=== PATIENT | male | born 1945 | race Caucasian/White ===

== ENCOUNTER 2016-07-26 03:19 | Inpatient (IN) | payer OTHER, MEDICARE, MEDICAID ==
[2016-07-26] VITALS (38 sets, daily range): BP systolic 125–162; BP diastolic 73–114; PULSE 69–101; RESP 14–26; TEMP 98.4; Ht 185.4 cm; Wt 78.6 kg
[~2016-07-26] VITALS: Ht 185.4 cm; Wt 78.6 kg
[~2016-07-26 03:19] MED LIST: DUTA0.5C PO; FLUT16SP24 NASAL; TAMS0.4C2 PO
--- NOTE | 2016-07-26 03:26 | ERA ---
ER Documentation Chief Complaint Date/Time DATE: 07/26/16 TIME: 03:25 Chief Complaint Chest pain HPI The patient is a 70-year-old male, presenting to the ER because of intermittent left-sided chest pain for 3 days, 12/04, radiating to the left arm. He denies similar symptoms previously. He saw his physician yesterday who put him on the Holter monitor. He denies fever, chills, cough, syncope, near syncope, dyspnea , abdominal pain, vomiting, dysuria, diarrhea. He does not smoke does not drink Past medical history: Hypertension, dyslipidemia, BPH, allergic rhinitis, history of left bundle branch block Past surgical history:None ROS All systems reviewed and are negative except as per history of present illness. Medications Home Meds Reported Medications Fluticasone Propionate* (Flonase* Nasal) 16 Gm Bern.susp, 1 PUFF NASAL BID 02/15/13 Dutasteride* (Avodart*) 0.5 Mg Capsule, 1 TAB PO DAILY 02/15/13 Tamsulosin Hcl* (Tamsulosin Hcl*) 0.4 Mg Cap.er.24h, 1 TAB PO DAILY 02/15/13 Allergies Allergies: Coded Allergies: No Known Allergy (Unverified , 02/15/13) PMhx/Soc History of Surgery: No Anesthesia Reaction: No Hx Neurological Disorder: No Hx Respiratory Disorders: No Hx Cardiac Disorders: Yes (HIGH BLOOD PRESSURE X 4YS) Hx Psychiatric Problems: No Hx Miscellaneous Medical Probl: No Hx Alcohol Use: No Hx Substance Use: No Hx Tobacco Use: No Physical Exam Vitals Vital Signs Date Time Temp Pulse Resp B/P Pulse Ox O2 Delivery O2 Flow Rate FiO2 07/26/16 05:09 98 22 165/106 100 07/26/16 03:51 98.2 91 17 182/116 97 Physical Exam Const: No acute distress. Head: Atraumatic. Eyes: Normal Conjunctiva. ENT: Normal External Ears, Nose and Mouth. Neck: Full range of motion. No meningismus. Resp: Clear to auscultation bilaterally. Cardio: Regular rate and rhythm, no murmurs. Abd: Soft, non distended, normal bowel sounds, non tender. Skin: No petechiae or rashes. Back: No midline or flank tenderness. Ext: No cyanosis, or edema. Neur: Awake and alert. No focal deficit Psych: Normal Mood and Affect. Result Diagram: 07/26/16 0340 07/26/16 0340 Results 24 hrs Laboratory Tests Test 07/26/16 03:40 White Blood Count 8.210^3/ul Red Blood Count 4.9110^6/ul Hemoglobin 15.0g/dl Hematocrit 45.2% Mean Corpuscular Volume 92.1fl Mean Corpuscular Hemoglobin 30.5pg Mean Corpuscular Hemoglobin Concent 33.2g/dl Red Cell Distribution Width 13.6% Platelet Count 70264^3/UL Mean Platelet Volume 11.6fl Neutrophils % 61.5% Lymphocytes % 27.0% Monocytes % 6.6% Eosinophils % 3.9% Basophils % 0.9% Nucleated Red Blood Cells % 0.0/100WBC Neutrophils # 5.110^3/ul Lymphocytes # 2.210^3/ul Monocytes # 0.510^3/ul Eosinophils # 0.310^3/ul Basophils # 0.110^3/ul Nucleated Red Blood Cells # 0.010^3/ul Prothrombin Time 12.9Sec Prothrombin Time Ratio 1.0 INR International Normalized Ratio 0.97 Activated Partial Thromboplast Time 33.2Sec Sodium Level 137mmol/L Potassium Level 3.4mmol/L Chloride Level 99mmol/L Carbon Dioxide Level 30mmol/L Anion Gap 11 Blood Urea Nitrogen 27mg/dl Creatinine 1.17mg/dl Glucose Level 126mg/dl Calcium Level 8.8mg/dl Troponin I 1.880ng/ml Current Medications Medications (Trade) Dose Ordered Sig/Luzmaria Route PRN Reason Start Time Stop Time Status Last Admin Dose Admin Aspirin (Aspirin) 325 mg ONCE ONCE PO 07/26/16 04:00 07/26/16 04:01 DC 07/26/16 04:16 Nitroglycerin (Nitroglycerin 2% Oint) 1 inch ONCE ONCE TD 07/26/16 04:00 07/26/16 04:01 DC 07/26/16 04:16 Potassium Chloride (Klor-Con 20) 40 meq ONCE ONCE PO 07/26/16 04:44 07/26/16 04:52 DC Enoxaparin Sodium 80 mg 80 mg ONCE ONCE SC 07/26/16 05:30 07/26/16 05:31 Nitroglycerin/ Dextrose 250 ml @ 1.5 mls/hr TITRATE IV 07/26/16 05:30 Nitroglycerin/ Dextrose (Nitroglycerin 50 Mg/D5W (Pmx)) 250 ml @ ud STK-MED ONCE .ROUTE 07/26/16 05:13 07/26/16 05:14 DC Procedures/MDM [place] [id number] [place] [id number] Radiology Main Line: [phone] DIAGNOSTIC IMAGING REPORT Patient: AGNES REYES : 1945 Age: 70 Sex: M MR #: [id number] DOS: 07/26/16 0327 Ordering MD: SHARON GAMBOA MD Location: E/R Room/Bed: PROCEDURE: XR Chest. CLINICAL INDICATION: Chest Pain. TECHNIQUE: Portable single view of the chest COMPARISON: 02/15/2013 FINDINGS: Again seen is cardiomegaly with ectatic and slightly calcified aorta. There are increased interstitial markings throughout the lung he bilaterally, new since the prior study. There is not marked pulmonary vascular congestion. No focal alveolar infiltrate or pleural effusion is seen. There is mild degenerative change of the spine. IMPRESSION: New increased interstitial markings throughout the lung he bilaterally, most prominent in the mid to lower lung zones. This may be due to new interstitial lung disease. Interstitial edema is possible although less likely given lack of pulmonary vascular congestion. Noncontrast CT may be helpful. Cardiomegaly and aortic calcification. RPTAT: HLBE Physician Eric Date Time Electronically viewed and signed by Laurence Terry Physician on 07/26/2016 04 :24 LE/ CC: SHARON GAMBOA MD EKG: Read by emergency physician at 3:30 AM Rate/Rhythm: Normal Sinus Rhythm 96 beats/min QRS, ST, T-waves: No ST elevation, no T inversion, LAD, left bundle branch block Impression: Abnormal EKG EKG: Read by emergency physician at 5:08 AM Rate/Rhythm: Normal Sinus Rhythm 99 beats/min QRS, ST, T-waves: No ST elevation, no T inversion, LAD, left bundle branch block Impression: Abnormal EKG MEDICAL MAKING DECISION: The patient is a 70-year-old male, presenting with acute non-STEMI, acute hypokalemia, suspected interstitial lung disease. He was treated with aspirin 325 mg p.o., 1 inch of nitroglycerin ointment, potassium chloride 40 mEq p.o., Lovenox 1 mg/kg subcutaneously, nitroglycerin drip titrated for chest pain. The differential diagnoses considered include but are not limited to acute coronary syndrome, acute myocardial infarction, pericarditis, pulmonary embolism , aortic dissection, pneumonia, pleural effusion, pneumothorax, GERD, chest wall pain. Departure Diagnosis: Primary Impression: Non-STEMI (non-ST elevated myocardial infarction) Additional Impressions: Hypokalemia Interstitial lung disease Condition: Critical Comments Critical Care: Time: 35 minutes excluding all billable procedures. Treatments/Evaluations: Close monitoring and treatment of unstable vital signs, cardiorespiratory, and neurologic status, while maintaining tight balance of fluid, respiratory, and cardiac interventions. I discussed the findings with the patient. I discussed the patient with the on- call hospitalist Dr. Singh who was made aware of the lab, the treatment, the patient condition. The patient is admitted to ICU at 5 AM SHARON GAMBOA MD Jul 26, 2016 03:26
[2016-07-26] MEDS ORDERED: ASPIRIN 325 MG TAB PO ONE (04:00)
[2016-07-26] MEDS ORDERED: NITROGLYCERIN 2% 1 GM OINT PKT TD ONE (04:00)
[2016-07-26 04:13] LABS: ADD SCAN DIFF NO
--- NOTE | 2016-07-26 04:24 | RADRPT ---
PROCEDURE: XR Chest. CLINICAL INDICATION: Chest Pain. TECHNIQUE: Portable single view of the chest COMPARISON: 02/15/2013 FINDINGS: Again seen is cardiomegaly with ectatic and slightly calcified aorta. There are increased interstit ial markings throughout the lung he bilaterally, new since the prior study. There is not marked pulmonary vascular congestion. No focal alveolar infiltrate or pleural effusion is seen. There is mild degenerative change of the spine. IMPRESSION: New increased interstitial markings throughout the lung he bilaterally, most prominent in the mi d to lower lung zones. This may be due to new interstitial lung disease. Interstitial edema is pos sible although less likely given lack of pulmonary vascular congestion. Noncontrast CT may be helpfu l. Cardiomegaly and aortic calcification. RPTAT: HLBE Physician Eric Date Time Electronically viewed and signed by Laurence Terry Physician on 07/26/2016 04:24 LE/
[2016-07-26 04:30] LABS: POTASSIUM 3.4 mmol/L (3.5-5.1)
[2016-07-26 04:32] LABS: BASOPHIL # 0.1 10^3/ul (0.0-0.1); BASOPHILS % 0.9 % (0.0-2.0); CREATININE 1.17 mg/dl (0.61-1.24); EOSINOPHILS # 0.3 10^3/ul (0.0-0.5); EOSINOPHILS % 3.9 % (0.0-7.0); HEMATOCRIT 45.2 % (42.0-52.0); LYMPHOCYTES # 2.2 10^3/ul (0.8-2.9); MEAN CORPUSCULAR HEMOGLOBIN 30.5 pg (29.0-33.0); MEAN CORPUSCULAR HGB CONC 33.2 g/dl (32.0-37.0); MEAN CORPUSCULAR VOLUME 92.1 fl (82.0-101.0); MEAN PLATELET VOLUME 11.6 fl (7.4-10.4); MONOCYTE # 0.5 10^3/ul (0.3-0.9); MONOCYTES % 6.6 % (0.0-11.0); NEUTROPHIL # 5.1 10^3/ul (1.6-7.5); NEUTROPHILS % 61.5 % (39.0-77.0); PLATELET COUNT 223 10^3/UL (140-415); RED BLOOD COUNT 4.91 10^6/ul (4.70-6.10); RED CELL DISTRIBUTION WIDTH 13.6 % (11.5-14.5); WHITE BLOOD COUNT 8.2 10^3/ul (4.8-10.8)
[2016-07-26 04:33] LABS: CALCIUM 8.8 mg/dl (8.4-10.2)
[2016-07-26 04:35] LABS: INR 0.97; PROTIME 12.9 Sec (12.2-14.2)
[2016-07-26 04:36] LABS: PARTIAL THROMBOPLASTIN TIME 33.2 Sec (25.0-35.0)
[2016-07-26] MEDS ORDERED: POTASSIUM CHLORIDE (SR) 20 MEQ TAB PO ONE (04:44)
[2016-07-26 04:58] LABS: TROPONIN-I 1.88 ng/ml (0.00-0.12)
[2016-07-26] MEDS ORDERED: NITROGLYCERIN 50 MG/D5W (PMX) 250 ML ONE (05:13)
[2016-07-26] MEDS ORDERED: NITROGLYCERIN 50 MG/D5W (PMX) 250 ML IV SCH (05:30)
[2016-07-26] MEDS ORDERED: ENOXAPARIN 80 MG/0.8 ML SYG SC ONE (05:30)
[2016-07-26] MEDS ORDERED: ONDANSETRON 4 MG INJ IV PRN (06:00)
[2016-07-26] MEDS ORDERED: LORAZEPAM 2 MG INJ IV PRN (06:00)
[2016-07-26] MEDS ORDERED: NITROGLYCERIN (SL) 0.4 MG TAB SL PRN (06:00)
[2016-07-26] MEDS ORDERED: morphine 2 MG INJ IV PRN (06:00)
[2016-07-26] MEDS ORDERED: ACETAMINOPHEN 650MG/20.3ML CUP PO PRN (06:00)
[2016-07-26 06:30] LABS: CHOL/HDL RATIO 3.1 RATIO
[2016-07-26] MEDS: PANTOPRAZOLE 40 MG INJ IV SCH (06:37)
[2016-07-26] MEDS: DEXTROSE 5%-0.45% NACL 1,000 ML IV SCH ×2 (06:38→19:10)
--- NOTE | 2016-07-26 07:28 | HP ---
DATE OF ADMISSION: 07/26/2016 CHIEF COMPLAINT: Chest pain. The patient is a 71-year-old male with a history of hypertension, dyslipidemia, BPH, and left bundle branch block who presented to the emergency department with chest pain. The pain is left-sided wit h radiation to his left arm and has been going on for the past 2 to 3 days. He denied any shortness of breath, nausea, vomiting, diaphoresis, fever or chills. The patient did see a doctor yesterday and has been put on a Holter monitor. When he presented to the ER, his initial blood pressure was 182/116, heart rate 91, respiratory rate 17, temperature 98.2, oxygen saturation 97%. Laboratory value was notable for an elevated troponin of 1.88, potassium 3.4, BUN 27. Otherwise, the rest of CBC and BMP were within normal limits. A c hest x-ray was done and it showed (as compared to the chest x-ray from 3 years ago) there are new in creased interstitial markings throughout lung he bilaterally, most prominent in the mid to lower lung zones. This may be due to new interstitial lung disease. The radiologist went on to report t hat interstitial edema is possible, although less likely given the lack of pulmonary vascular conges tion. Also noted was cardiomegaly and aortic calcification. The patient has been given weight-base d Lovenox and has been started on a nitroglycerin drip. His initial EKG when he came shows normal s inus rhythm with a rate of [address]-T wave abnormality, but noted was a left bundle branch bloc k. A repeat EKG was essentially the same except for a heart rate of 99. REVIEW OF SYSTEMS: A 12-point review of systems is normal except as mentioned in HPI. PAST MEDICAL HISTORY: As per HPI. PAST SURGICAL HISTORY: Denies. ALLERGIES: NO KNOWN DRUG ALLERGIES. HOME MEDICATIONS: 1. Tamsulosin. 2. Avodart. 3. Flonase. PHYSICAL EXAMINATION: VITAL SIGNS: Blood pressure 155/106, heart rate 98, respiratory rate 22, temperature 98.2, oxygen s aturation 100% on 3 liters nasal cannula. GENERAL: Slightly sleepy but arousable with no acute distress. HEENT: No obvious head deformity. Pupils are reactive to light. Extraocular muscles intact. CARDIOVASCULAR: Tachycardic with regular rhythm. LUNGS: Clear anteriorly. ABDOMEN: Soft, nontender, nondistended. Positive bowel sounds. EXTREMITIES: No edema. NEUROLOGIC: No focal deficits. LABORATORY DATA: Pertinent positive results as mentioned in the HPI. IMAGING: Chest x-ray results as mentioned in the HPI. IMPRESSION: 1. Non-ST elevation myocardial infarction. 2. Chest pain, most likely secondary to above. 3. Likely interstitial lung disease. 4. History of benign prostatic hypertrophy. 5. Mild hypokalemia. 6. Hypertensive emergency. Admit to the ICU. We will continue with nitro drip. We will trend his troponin. Will obtain a 2D echo and a cardiology consult. He will be placed on aspirin, beta aleksandar, statin and oxygen. We w ill provide morphine as needed. We will continue his home medication with adjustment as needed. We will place a pulmonary consult given likely newly diagnosed interstitial lung disease. Will check A1c, fasting lipids, and TSH. Further workup and management per clinical course. Dictated By: KAREL BURNS/KEYA Conf#: [id number] DID#: [id number]
[2016-07-26] MEDS ORDERED: ASPIRIN (EC) 81 MG TAB PO SCH (09:00)
[2016-07-26] MEDS ORDERED: ATORVASTATIN 40 MG TAB PO SCH (09:00)
[2016-07-26] MEDS ORDERED: METOPROLOL 25 MG TAB PO SCH (09:00)
[2016-07-26] MEDS: ALBUTEROL/IPRATROPIUM (NEB) 3 ML AMP NEB SCH ×2 (10:33→21:45)
[2016-07-26] MEDS: FLUTICASONE 0.05% 16 GM NAS SPRAY NASAL SCH ×2 (10:50→21:00)
[2016-07-26 10:52] LABS: CK-MB 14.9 ng/ml (0.0-2.4); TROPONIN-I 3.84 ng/ml (0.00-0.12)
[2016-07-26] MEDS ORDERED: FUROSEMIDE 40 MG INJ IV SCH (15:30)
[2016-07-26 16:15] LABS: TROPONIN-I 4.48 ng/ml (0.00-0.12)
[2016-07-26] MEDS: NITROGLYCERIN 50 MG/D5W (PMX) 250 ML IV SCH ×2 (16:18→18:30)
--- NOTE | 2016-07-26 17:12 | CONS ---
Date/Time of Note Date/Time of Note DATE: 07/26/16 TIME: 17:02 Assessment/Plan Assessment/Plan Chief Complaint/Hosp Course Assessment: NSTEMI Accelerated hypertension Chronic left bundle branch block Dyslipidemia Benign prostate hyperplasia Increased interstitial markings on chest x-ray - interstitial lung disease vs pulmonary edema, status post diuresis Recommendations: -serial troponins -transthoracic echocardiogram -continue full anticoagulation with Lovenox -continue aspirin at 325mg daily -continue atorvastatin at 80mg daily -change metoprolol to carvedilol 12.5mg BID -continue nitroglycerin drip, wean as able -discontinue Lasix -plan for coronary angiography Problems: Consultation Date/Type/Reason Admit Date/Time Jul 26, 2016 at 05:58 Type of Consultation: Cardiology Reason for Consultation elevated troponin Hx of Present Illness The patient is a 70 year-old male who presents with three days of waxing and waning chest pain. He describes a left-sided chest pressure with radiation down the left arm. His initial blood pressure was elevated up to 182/116. His EKG showed normal sinus rhythm with a left bundle branch block, which is reported to be chronic. His initial troponin was 1.8 and has trended up to 4.4. He has been started on nitroglycerin drip and full anticoagulation with Lovenox. He is currently without chest pain. He denies shortness of breath. 14 point review of systems negative other than per HPI. Past Medical History Chronic left bundle branch block Hypertension Dyslipidemia Benign prostate hyperplasia Past Surgical History Past Surgical Hx: no surgical history Family History Significant Family History: no pertinent family hx Social History Alcohol Use: none Smoking Status: Never smoker Drug Use: none Exam/Review of Systems Vital Signs Vitals Vital Signs Date Time Temp Pulse Resp B/P Pulse Ox O2 Delivery O2 Flow Rate FiO2 07/26/16 16:30 76 19 147/85 96 Room Air 07/26/16 16:00 97.8 07/26/16 13:30 2.0 Exam Constitutional: alert, well developed Psych: nl mood/affect, no complaints Head: atraumatic, normocephalic Eyes: nl conjunctiva, nl lids ENMT: nl external ears & nose, nl nasal mucosa & septum Neck: non-tender, supple, No jvd Respiratory: clear to auscultation, normal air movement Cardiovascular: regular rate and rhythm Gastrointestinal: non-tender, soft Musculoskeletal: nl extremities to inspection Extremities: No clubbing, No cyanosis, No edema Neurological: nl mental status, nl speech Results Result Diagram: 07/26/16 0340 07/26/16 0340 Results 24 hrs Laboratory Tests Test 07/26/16 03:40 07/26/16 10:14 07/26/16 14:00 White Blood Count 8.2 Red Blood Count 4.91 Hemoglobin 15.0 Hematocrit 45.2 Mean Corpuscular Volume 92.1 Mean Corpuscular Hemoglobin 30.5 Mean Corpuscular Hemoglobin Concent 33.2 Red Cell Distribution Width 13.6 Platelet Count 223 Mean Platelet Volume 11.6 H Neutrophils % 61.5 Lymphocytes % 27.0 Monocytes % 6.6 Eosinophils % 3.9 Basophils % 0.9 Nucleated Red Blood Cells % 0.0 Neutrophils # 5.1 Lymphocytes # 2.2 Monocytes # 0.5 Eosinophils # 0.3 Basophils # 0.1 Nucleated Red Blood Cells # 0.0 Prothrombin Time 12.9 Prothrombin Time Ratio 1.0 INR International Normalized Ratio 0.97 Activated Partial Thromboplast Time 33.2 Sodium Level 137 Potassium Level 3.4 L Chloride Level 99 Carbon Dioxide Level 30 Anion Gap 11 Blood Urea Nitrogen 27 H Creatinine 1.17 Glucose Level 126 Hemoglobin A1c 5.3 Calcium Level 8.8 Troponin I 1.880 *H 3.840 *H 4.480 *H Triglycerides Level 74 Cholesterol Level 197 LDL Cholesterol, Calculated 119 HDL Cholesterol 63 Cholesterol/HDL Ratio 3.1 Thyroid Stimulating Hormone (TSH) 5.080 H Creatine Kinase 207 H 195 Creatine Kinase Index 7.2 7.6 Creatinine Kinase MB (Mass) 14.90 H 15.00 H Medications Medications Current Medications Dextrose/Sodium Chloride (D5-1/2ns) 1,000 ml @ 75 mls/hr [id number] IV Last administered on 07/26/16t 06:38; Admin Dose 75 MLS/HR; Start 07/26/16 at 05:50 Ondansetron HCl (Zofran Inj) 4 mg Q6H PRN IV NAUSEA AND/OR VOMITING; Start 07/26 at 06:00 Nitroglycerin (Nitroglycerin (Sl Tab) 0.4 Mg) 1 tab Q5M PRN SL CHEST PAIN; Start 07/26/16 at 06:00 Acetaminophen (Tylenol Liquid) 650 mg Q6H PRN PO PAIN LEVEL 1-3 OR FEVER; Start 07/26/16 at 06:00 Morphine Sulfate (morphine) 2 mg Q4H PRN IV PAIN LEVEL 7-10; Start 07/26/16 at 06:00 Lorazepam (Ativan) 1 mg Q2H PRN IV ANXIETY; Start 07/26/16 at 06:00 Pantoprazole (Protonix Iv) 40 mg DAILY@06 IV Last administered on 07/26/16 06: 37; Admin Dose 40 MG; Start 07/26/16 at 06:00 Fluticasone Propionate (Flonase 0.05% Nasal) 0.05 spray BID NASAL Last administered on 07/26/16 10:50; Admin Dose 0.05 SPRAY; Start 07/26/16 at 09:00 Tamsulosin HCl (Flomax) 0.4 mg DAILY@21 PO ; Start 07/26/16 at 21:00 Aspirin (Halfprin) 81 mg DAILY PO Last administered on 07/26/16 10:15; Admin Dose 81 MG; Start 07/26/16 at 09:00 Enoxaparin Sodium (Lovenox) 80 mg Q12 SC ; Start 07/26/16 at 21:00 Metoprolol Tartrate (Lopressor) 25 mg BID PO Last administered on 07/26/16 10: 17; Admin Dose 25 MG; Start 07/26/16 at 09:00 Atorvastatin Calcium (Lipitor) 40 mg DAILY PO Last administered on 07/26/16 10: 16; Admin Dose 40 MG; Start 07/26/16 at 09:00 Furosemide (Lasix) 40 mg DAILY IV Last administered on 07/26/16 16:17; Admin Dose 40 MG; Start 07/26/16 at 15:30 ZULEIMA BOWMAN MD Jul 26, 2016 17:11
[2016-07-26] MEDS: TAMSULOSIN (SR) 0.4 MG CAP PO SCH (20:27)
[2016-07-26] MEDS: ENOXAPARIN 80 MG/0.8 ML SYG SC SCH (20:29)
[2016-07-27] VITALS (88 sets, daily range): BP systolic 106–163; BP diastolic 53–103; PULSE 77–100; RESP 14–28
[2016-07-27] MEDS: NITROGLYCERIN 50 MG/D5W (PMX) 250 ML IV SCH ×2 (00:21→10:41)
[2016-07-27] MEDS: ALBUTEROL/IPRATROPIUM (NEB) 3 ML AMP NEB SCH ×4 (01:03→13:00)
[2016-07-27 05:31] LABS: ADD SCAN DIFF NO
[2016-07-27 05:48] LABS: BASOPHIL # 0.1 10^3/ul (0.0-0.1); BASOPHILS % 0.6 % (0.0-2.0); EOSINOPHILS # 0.1 10^3/ul (0.0-0.5); EOSINOPHILS % 1.4 % (0.0-7.0); HEMATOCRIT 38.5 % (42.0-52.0); HEMOGLOBIN 12.9 g/dl (14.0-18.0); LYMPHOCYTES # 1.8 10^3/ul (0.8-2.9); LYMPHOCYTES % 19.5 % (15.0-51.0); MEAN CORPUSCULAR HEMOGLOBIN 30.1 pg (29.0-33.0); MEAN CORPUSCULAR HGB CONC 33.5 g/dl (32.0-37.0); MEAN PLATELET VOLUME 11.8 fl (7.4-10.4); MONOCYTES % 10.9 % (0.0-11.0); NEUTROPHIL # 6.4 10^3/ul (1.6-7.5); NEUTROPHILS % 67.4 % (39.0-77.0); PLATELET COUNT 197 10^3/UL (140-415); RED BLOOD COUNT 4.28 10^6/ul (4.70-6.10); RED CELL DISTRIBUTION WIDTH 13.7 % (11.5-14.5); WHITE BLOOD COUNT 9.5 10^3/ul (4.8-10.8)
[2016-07-27] MEDS: PANTOPRAZOLE 40 MG INJ IV SCH (05:59)
[2016-07-27 06:10] LABS: ALBUMIN 3.1 g/dl (3.3-4.9)
[2016-07-27 06:11] LABS: POTASSIUM 3.6 mmol/L (3.5-5.1)
[2016-07-27 06:13] LABS: BILIRUBIN,INDIRECT 0.9 mg/dl (0-1.1); BILIRUBIN,TOTAL 0.9 mg/dl (0.2-1.3); CREATININE 1.18 mg/dl (0.61-1.24); TOTAL PROTEIN 6.2 g/dl (6.1-8.1)
[2016-07-27 06:14] LABS: CALCIUM 8.5 mg/dl (8.4-10.2); CHOL/HDL RATIO 2.6 RATIO; MAGNESIUM 1.7 mg/dl (1.7-2.5); PHOSPHORUS 3.4 mg/dl (2.5-4.9)
[2016-07-27 06:21] LABS: T3 UPTAKE 43.2 % (23.5-40.5)
[2016-07-27 06:36] LABS: THYROID STIMULATING HORMONE 1.85 MIU/L (0.465-4.680)
[2016-07-27] MEDS: DEXTROSE 5%-0.45% NACL 1,000 ML IV SCH ×3 (08:30→22:22)
[2016-07-27] MEDS: FLUTICASONE 0.05% 16 GM NAS SPRAY NASAL SCH ×2 (08:34→20:22)
[2016-07-27] MEDS: ATORVASTATIN 40 MG TAB PO SCH (08:35)
[2016-07-27] MEDS: ASPIRIN (EC) 81 MG TAB PO SCH (08:35)
[2016-07-27] MEDS: ENOXAPARIN 80 MG/0.8 ML SYG SC SCH ×2 (08:37→20:24)
--- NOTE | 2016-07-27 12:22 | PN ---
Date/Time of Note Date/Time of Note DATE: 07/27/16 TIME: 12:18 Assessment/Plan VTE Prophylaxis VTE Prophylaxis Intervention: LMWH Lines/Catheters IV C[facility]ter Type (from [facility] Peripheral IV Urinary Cath still in place: No Assessment/Plan Chief Complaint/Hosp Course Assessment and plan 1. Non-ST elevated myocardial infarction. Continue Lovenox 1 mg/kg. Remains on nitro drip. Titrate down as tolerated. Continue telemetry monitoring. Continue optimization with cardiovascular medications 2. Chronic left bundle branch block. Stable at present. Monitor on telemetry 3. BPH. Continue on tamsulosin 4. Dyslipidemia. Continue on statin 5. Interstitial lung disease. No respiratory distress seen at this time. Bronchodilators as needed 6. Essential hypertension. 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 Will follow up Discussed plan of care with Dr. Michelle Critical CARE time: 30 minutes Problems: Subjective 24 Hr Interval Summary Free Text/Dictation Still remains a nitroglycerin drip. No reports of chest pain at this time. No apparent distress Exam/Review of Systems Vital Signs Vitals Vital Signs Date Time Temp Pulse Resp B/P Pulse Ox O2 Delivery O2 Flow Rate FiO2 07/27/16 11:45 84 21 133/79 96 Room Air 07/27/16 09:54 21 07/27/16 09:00 98.4 07/26/16 13:30 2.0 Intake and Output 07/26/16 07/26/16 07/27/16 15:00 23:00 07:00 Intake Total 135 ml 2217.5 ml 836 ml Output Total 0 ml 2300 ml 450 ml Balance 135 ml -82.5 ml 386 ml Exam General: No apparent distress seen. Eyes: Equal round Neck: Supple nontender, no JVD Cardiac: S1-S2 auscultated. Slight murmur. Regular rate on monitor Pulmonary: No adventitious lung sounds GI: Soft nontender nondistended Extremities: No edema noted bilateral lower extremity Skin: CDI Neurologic: AL O 4 Results Result Diagram: 07/27/16 0451 07/27/16 0451 Results 24 hrs Laboratory Tests Test 07/26/16 14:00 07/27/16 04:51 Creatine Kinase 195 Creatine Kinase Index 7.6 Creatinine Kinase MB (Mass) 15.00 H Troponin I 4.480 *H 3.770 *H White Blood Count 9.5 Red Blood Count 4.28 L Hemoglobin 12.9 L Hematocrit 38.5 L Mean Corpuscular Volume 90.0 Mean Corpuscular Hemoglobin 30.1 Mean Corpuscular Hemoglobin Concent 33.5 Red Cell Distribution Width 13.7 Platelet Count 197 Mean Platelet Volume 11.8 H Neutrophils % 67.4 Lymphocytes % 19.5 Monocytes % 10.9 Eosinophils % 1.4 Basophils % 0.6 Nucleated Red Blood Cells % 0.0 Neutrophils # 6.4 Lymphocytes # 1.8 Monocytes # 1.0 H Eosinophils # 0.1 Basophils # 0.1 Nucleated Red Blood Cells # 0.0 Sodium Level 134 L Potassium Level 3.6 Chloride Level 100 Carbon Dioxide Level 28 Anion Gap 10 Blood Urea Nitrogen 20 Creatinine 1.18 Glucose Level 111 Hemoglobin A1c 5.3 Calcium Level 8.5 Phosphorus Level 3.4 Magnesium Level 1.7 Total Bilirubin 0.9 Direct Bilirubin 0.00 Indirect Bilirubin 0.9 Aspartate Amino Transf (AST/SGOT) 33 Alanine Aminotransferase (ALT/SGPT) 34 Alkaline Phosphatase 65 Total Protein 6.2 Albumin 3.1 L Globulin 3.10 Albumin/Globulin Ratio 1.00 Triglycerides Level 57 Cholesterol Level 157 LDL Cholesterol, Calculated 86 HDL Cholesterol 60 Cholesterol/HDL Ratio 2.6 Thyroid Stimulating Hormone (TSH) 1.850 Free Thyroxine Index 2.64 Thyroxine (T4) 6.1 Triiodothyronine (T3) Uptake 43.2 H Medications Medications Current Medications Dextrose/Sodium Chloride (D5-1/2ns) 1,000 ml @ 75 mls/hr [id number] IV Last administered on 07/27/16t 09:11; Admin Dose 75 MLS/HR; Start 07/26/16 at 05:50 Ondansetron HCl (Zofran Inj) 4 mg Q6H PRN IV NAUSEA AND/OR VOMITING; Start 07/26 at 06:00 Nitroglycerin (Nitroglycerin (Sl Tab) 0.4 Mg) 1 tab Q5M PRN SL CHEST PAIN; Start 07/26/16 at 06:00 Acetaminophen (Tylenol Liquid) 650 mg Q6H PRN PO PAIN LEVEL 1-3 OR FEVER; Start 07/26/16 at 06:00 Morphine Sulfate (morphine) 2 mg Q4H PRN IV PAIN LEVEL 7-10; Start 07/26/16 at 06:00 Lorazepam (Ativan) 1 mg Q2H PRN IV ANXIETY; Start 07/26/16 at 06:00 Pantoprazole (Protonix Iv) 40 mg DAILY@06 IV Last administered on 07/27/16 05: 59; Admin Dose 40 MG; Start 07/26/16 at 06:00 Fluticasone Propionate (Flonase 0.05% Nasal) 0.05 spray BID NASAL Last administered on 07/27/16 08:34; Admin Dose 0.05 SPRAY; Start 07/26/16 at 09:00 Tamsulosin HCl (Flomax) 0.4 mg DAILY@21 PO Last administered on 07/26/16 20:27 ; Admin Dose 0.4 MG; Start 07/26/16 at 21:00 Enoxaparin Sodium (Lovenox) 80 mg Q12 SC Last administered on 07/27/16 08:37; Admin Dose 80 MG; Start 07/26/16 at 21:00 Aspirin (Halfprin) 325 mg DAILY PO Last administered on 07/27/16 08:35; Admin Dose 325 MG; Start 07/27/16 at 09:00 Atorvastatin Calcium (Lipitor) 80 mg DAILY PO Last administered on 07/27/16 08: 35; Admin Dose 80 MG; Start 07/27/16 at 09:00 Carvedilol (Coreg) 12.5 mg BID PO Last administered on 07/27/16 08:35; Admin Dose 12.5 MG; Start 07/26/16 at 21:00 BRYNN PATHAK Jul 27, 2016 12:22
--- NOTE | 2016-07-27 15:06 | RADRPT ---
Echocardiogram Report Patient Name: AGNES REYES Gender: Male Date: 1945 Study Date: 27-Jul-2016 Culvert Installer: JIMMY Location: E Ref. Physician: KAREL DOWLING Quality: Technically Difficult Study Procedures: Transthoracic echocardiogram with complete 2D, M-Mode, and doppler examination. Indications: NSTEMI. 2D/M Mode Doppler Measurement Value Normal Ranges Measurement Value Normal Ranges AoR Diam MM 3.4 cm AV Peak Malick 1.3 m/sec ACS MM 2.0 cm AV Peak PG 7.2 mmHg LVIDd 2D 5.6 3.5 - 5.6 cm LVOT Peak Malick 0.6 m/sec LVIDs 2D 4.4 2.1 - 4.1 cm LVOT Peak PG 1.6 mmHg LVPWd 2D 1.5 0.6 - 1.1 cm MV E Peak Malick 1.1 m/sec IVSd 2D 1.6 0.6 - 1.1 cm MV A Peak Malick 0.3 m/sec EDV 2D 156.4 cm3 MV E/A 4.2 ESV 2D 84.0 cm3 MV Decel Time 107 msec LA Dimen 2D 4.3 2.3 - 4.0 cm MV Decel Casey 10 MV E/A 4.2 TR Peak Malick 2.2 m/sec TR Peak PG 20.2 mmHg PV Peak Malick 0.9 m/sec PV Peak PG 3.0 mmHg RVSP 23.2 mmHg Findings Left Ventricle: Normal left ventricular cavity size. Moderate concentric left ventricular hypertrophy. Severe left ventricular systolic dysfunction, not all wall segments are imaged clearly. Ejection fraction is visually estimated at 2530 %. Multiple segmental wall motion abnormalities. Right Ventricle: Normal right ventricular size. Normal right ventricular systolic function. Left Atrium: There is mild enlargement of left atrium. Right Atrium: The right atrium is normal in size. Atrial Septum: Normal atrial septum. Ventricular septum: Normal/intact ventricular septum. Mitral Valve: Mild mitral annular calcification. Mild mitral valve regurgitation. Aortic Valve: No hemodynamically significant aortic stenosis by doppler. Aortic sclerosis without stenosis. Aortic cusps appear moderately calcified. No aortic regurgitation. Tricuspid Valve: Normal appearance of the tricuspid valve. Estimated peak PA systolic pressure 23 mmHg. There is trace tricuspid regurgitation. Pulmonic Valve: Normal pulmonic valve appearance. There is trace pulmonic regurgitation. Pericardium: Normal pericardium with no significant pericardial effusion. Aorta: Normal aortic root size with decreased excursion. IVC: Normal size and normal respiratory collapse consistent with normal right atrial pressure. Pulmonary Artery: Normal pulmonary artery size. Conclusions 1.The left ventricle is normal in size with severely reduced systolic function. All wall segments except for the inferolateral and lateral dean are hypokinetic. 2.Estimated left ventricular ejection fraction of 25-30%. 3.Moderate concentric left ventricular hypertrophy. 4.Mild left atrial enlargement. Electronically Signed By: Gio Hernandez 27-Jul-2016 15:05:35 -0700 Patient Name: AGNES REYES Study Date: 27-Jul-2016 [id number]
[2016-07-27] MEDS: TAMSULOSIN (SR) 0.4 MG CAP PO SCH (20:22)
--- NOTE | 2016-07-27 20:26 | CONS ---
Date/Time of Note Date/Time of Note DATE: 07/27/16 TIME: 20:20 Assessment/Plan Assessment/Plan Chief Complaint/Hosp Course Assessment: NSTEMI Ischemic cardiomyopathy, LVEF 25-30% Accelerated hypertension Chronic left bundle branch block Dyslipidemia Benign prostate hyperplasia Increased interstitial markings on chest x-ray - interstitial lung disease vs pulmonary edema, status post diuresis Recommendations: -last dose of Lovenox tonight and then hold -continue aspirin 325mg daily -continue atorvastatin 80mg daily -increase carvedilol to 25mg BID -continue nitroglycerin drip, wean as able -coronary angiography tomorrow morning, NPO after midnight Problems: Consultation Date/Type/Reason Admit Date/Time Jul 26, 2016 at 05:58 Initial Consult Date Type of Consultation: Cardiology 24 HR Interval Summary Free Text/Dictation Chest pain improved. Blood pressures still elevated requiring nitroglycerin drip. Troponin peaked at 4.48 and downtrending. Detailed Summary Additional Comments 14 point review of systems without changes. Exam/Review of Systems Vital Signs Vitals Vital Signs Date Time Temp Pulse Resp B/P Pulse Ox O2 Delivery O2 Flow Rate FiO2 07/27/16 20:15 92 15 151/91 97 07/27/16 19:45 Room Air 07/27/16 16:00 98.4 07/27/16 09:54 21 07/26/16 13:30 2.0 Intake and Output 07/26/16 07/26/16 07/27/16 15:00 23:00 07:00 Intake Total 135 ml 2217.5 ml 836 ml Output Total 0 ml 2300 ml 450 ml Balance 135 ml -82.5 ml 386 ml Exam Constitutional: alert, well developed Psych: nl mood/affect, no complaints Head: atraumatic, normocephalic Eyes: nl conjunctiva, nl lids ENMT: nl external ears & nose, nl nasal mucosa & septum Neck: non-tender, supple, No jvd Respiratory: clear to auscultation, normal air movement Cardiovascular: regular rate and rhythm Gastrointestinal: non-tender, soft Musculoskeletal: nl extremities to inspection Extremities: No clubbing, No cyanosis, No edema Neurological: nl mental status, nl speech Results Result Diagram: 07/27/16 0451 07/27/16 0451 Results 24 hrs Laboratory Tests Test 07/27/16 04:51 White Blood Count 9.5 Red Blood Count 4.28 L Hemoglobin 12.9 L Hematocrit 38.5 L Mean Corpuscular Volume 90.0 Mean Corpuscular Hemoglobin 30.1 Mean Corpuscular Hemoglobin Concent 33.5 Red Cell Distribution Width 13.7 Platelet Count 197 Mean Platelet Volume 11.8 H Neutrophils % 67.4 Lymphocytes % 19.5 Monocytes % 10.9 Eosinophils % 1.4 Basophils % 0.6 Nucleated Red Blood Cells % 0.0 Neutrophils # 6.4 Lymphocytes # 1.8 Monocytes # 1.0 H Eosinophils # 0.1 Basophils # 0.1 Nucleated Red Blood Cells # 0.0 Sodium Level 134 L Potassium Level 3.6 Chloride Level 100 Carbon Dioxide Level 28 Anion Gap 10 Blood Urea Nitrogen 20 Creatinine 1.18 Glucose Level 111 Hemoglobin A1c 5.3 Calcium Level 8.5 Phosphorus Level 3.4 Magnesium Level 1.7 Total Bilirubin 0.9 Direct Bilirubin 0.00 Indirect Bilirubin 0.9 Aspartate Amino Transf (AST/SGOT) 33 Alanine Aminotransferase (ALT/SGPT) 34 Alkaline Phosphatase 65 Troponin I 3.770 *H Total Protein 6.2 Albumin 3.1 L Globulin 3.10 Albumin/Globulin Ratio 1.00 Triglycerides Level 57 Cholesterol Level 157 LDL Cholesterol, Calculated 86 HDL Cholesterol 60 Cholesterol/HDL Ratio 2.6 Thyroid Stimulating Hormone (TSH) 1.850 Free Thyroxine Index 2.64 Thyroxine (T4) 6.1 Triiodothyronine (T3) Uptake 43.2 H Medications Medications Current Medications Dextrose/Sodium Chloride (D5-1/2ns) 1,000 ml @ 75 mls/hr [id number] IV Last administered on 07/27/16t 09:11; Admin Dose 75 MLS/HR; Start 07/26/16 at 05:50 Ondansetron HCl (Zofran Inj) 4 mg Q6H PRN IV NAUSEA AND/OR VOMITING; Start 07/26 at 06:00 Nitroglycerin (Nitroglycerin (Sl Tab) 0.4 Mg) 1 tab Q5M PRN SL CHEST PAIN; Start 07/26/16 at 06:00 Acetaminophen (Tylenol Liquid) 650 mg Q6H PRN PO PAIN LEVEL 1-3 OR FEVER; Start 07/26/16 at 06:00 Morphine Sulfate (morphine) 2 mg Q4H PRN IV PAIN LEVEL 7-10; Start 07/26/16 at 06:00 Lorazepam (Ativan) 1 mg Q2H PRN IV ANXIETY; Start 07/26/16 at 06:00 Pantoprazole (Protonix Iv) 40 mg DAILY@06 IV Last administered on 07/27/16 05: 59; Admin Dose 40 MG; Start 07/26/16 at 06:00 Fluticasone Propionate (Flonase 0.05% Nasal) 0.05 spray BID NASAL Last administered on 07/27/16 08:34; Admin Dose 0.05 SPRAY; Start 07/26/16 at 09:00 Tamsulosin HCl (Flomax) 0.4 mg DAILY@21 PO Last administered on 07/26/16 20:27 ; Admin Dose 0.4 MG; Start 07/26/16 at 21:00 Enoxaparin Sodium (Lovenox) 80 mg Q12 SC Last administered on 07/27/16 08:37; Admin Dose 80 MG; Start 07/26/16 at 21:00 Aspirin (Halfprin) 325 mg DAILY PO Last administered on 07/27/16 08:35; Admin Dose 325 MG; Start 07/27/16 at 09:00 Atorvastatin Calcium (Lipitor) 80 mg DAILY PO Last administered on 07/27/16 08: 35; Admin Dose 80 MG; Start 07/27/16 at 09:00 Carvedilol (Coreg) 12.5 mg BID PO Last administered on 07/27/16 08:35; Admin Dose 12.5 MG; Start 07/26/16 at 21:00 ZULEIMA BOWMAN MD Jul 27, 2016 20:26
[2016-07-28] VITALS (51 sets, daily range): BP systolic 100–195; BP diastolic 55–113; PULSE 71–112; RESP 12–32
[2016-07-28] MEDS: NITROGLYCERIN 50 MG/D5W (PMX) 250 ML IV SCH (00:14)
[2016-07-28] MEDS: PANTOPRAZOLE 40 MG INJ IV SCH (05:33)
[2016-07-28 06:34] LABS: ADD SCAN DIFF NO
[2016-07-28 06:41] LABS: BASOPHIL # 0.1 10^3/ul (0.0-0.1); BASOPHILS % 0.8 % (0.0-2.0); EOSINOPHILS # 0.2 10^3/ul (0.0-0.5); EOSINOPHILS % 2.6 % (0.0-7.0); HEMATOCRIT 38.1 % (42.0-52.0); HEMOGLOBIN 12.7 g/dl (14.0-18.0); LYMPHOCYTES # 1.7 10^3/ul (0.8-2.9); LYMPHOCYTES % 18.8 % (15.0-51.0); MEAN CORPUSCULAR HEMOGLOBIN 30.2 pg (29.0-33.0); MEAN CORPUSCULAR HGB CONC 33.3 g/dl (32.0-37.0); MEAN CORPUSCULAR VOLUME 90.7 fl (82.0-101.0); MEAN PLATELET VOLUME 11.6 fl (7.4-10.4); MONOCYTE # 1.2 10^3/ul (0.3-0.9); MONOCYTES % 13.2 % (0.0-11.0); NEUTROPHIL # 5.9 10^3/ul (1.6-7.5); NEUTROPHILS % 64.4 % (39.0-77.0); PLATELET COUNT 193 10^3/UL (140-415); RED CELL DISTRIBUTION WIDTH 13.7 % (11.5-14.5); WHITE BLOOD COUNT 9.2 10^3/ul (4.8-10.8)
[2016-07-28 07:00] LABS: POTASSIUM 3.9 mmol/L (3.5-5.1)
[2016-07-28 07:02] LABS: CREATININE 1.15 mg/dl (0.61-1.24)
[2016-07-28 07:03] LABS: CALCIUM 8.5 mg/dl (8.4-10.2)
[2016-07-28] MEDS ORDERED: IODIXANOL LOCM 100 ML BTL ONE ×2 (07:27→08:45)
[2016-07-28] MEDS ORDERED: HEPARIN 1000 UNITS/ML 10 ML INJ ONE (07:27)
[2016-07-28] MEDS ORDERED: MIDAZOLAM 1 MG/ML 2 ML INJ ONE (07:27)
[2016-07-28] MEDS ORDERED: VERAPAMIL 5 MG INJ ONE (07:27)
[2016-07-28] MEDS ORDERED: FENTAnyl 50 MCG/ML VIAL ONE (07:27)
[2016-07-28] MEDS ORDERED: NITROGLYCERIN (IC) 100 MCG/ML INJ ONE (07:28)
[2016-07-28] MEDS ORDERED: LIDOCAINE 1% (MDV) 20 ML INJ ONE (07:28)
[2016-07-28] MEDS ORDERED: SOD CHLORIDE 0.9% 500 ML ONE (07:28)
[2016-07-28] MEDS ORDERED: TICAGRELOR 90 MG TABLET ONE (08:32)
[2016-07-28] MEDS ORDERED: ASPIRIN 81 MG TAB ONE (08:32)
[2016-07-28] MEDS ORDERED: IODIXANOL LOCM 50 ML BTL ONE (08:32)
[2016-07-28] MEDS ORDERED: BIVALIRUDIN 250MG /NS 50 ML 50 ML IVPB ONE (08:42)
[2016-07-28] MEDS: ASPIRIN (EC) 81 MG TAB PO SCH (09:00)
[2016-07-28] MEDS ORDERED: hydrALAzine 20 MG INJ ONE (09:00)
[2016-07-28] MEDS ORDERED: morphine 2 MG INJ IV PRN (09:30)
[2016-07-28] MEDS ORDERED: ACETAMINOPHEN 325 MG TAB PO PRN (09:30)
[2016-07-28] MEDS ORDERED: ONDANSETRON 4 MG INJ IV PRN (09:30)
--- NOTE | 2016-07-28 09:31 | OPR ---
Date/Time of Note Date/Time of Note DATE: 07/28/16 TIME: 09:22 Operative Report Free Text/Dictation Procedure Date:07/28/2016 Procedures Performed: 1)Left heart catheterization with selective left and right coronary angiography. 2)Balloon angioplasty and stenting of the anomalous mid RCA with a Synergy 3.5 x 12 drug eluting stent. Pre-operative Diagnosis:NSTEMI Post-operative Diagnosis:NSTEMI s/p PCI of RCA Indications:70 yo M with HTN, HL, chronic LBBB who presented with chest pain and was found to have an NSTEMI (trop 4.6) and LVEF 25%. Description of Procedure: After informed consent, the patient was brought to the cardiac catheterization lab. The procedure site was prepped and draped in usual manner. The patient was premedicated with versed 1mg and fentanyl 50 mcg. 2 mL lidocaine was injected into the right wrist. Next using the posterior wall technique, the 6/ 5 jamaican sheath was inserted into the right radial artery. Next using the JL3.5 and Harvey catheter, selective angiography of the left and nonselective of the right coronary arteries were obtained. The decision was made to proceed with PCI of the RCA. A 6 jamaican [employer] left 4.0 guide was advanced and engaged into the right coronary artery. After appropriate anticoagulation and antiplatelets were given, the PT moderate support angioplasty wire was advanced past the lesion. Next the 2.5 X 12 balloon was used to dilate the lesion times 1 at a maximum of 12 blayne. Subsequently, the Synergy 3.5 x 12 drug eluting stent was advanced to the lesion and deployed at 14 blayne. Next the stent was post dilated with the 3.75 x 8 noncompliant balloon times 2 at a maximum of 14 blayne. Final angiography revealed BUDDY 3 flow, no edge dissection, and appropriate stent expansion. Next all equipment was removed and hemostasis was achieved by TR band. 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% PDA:mild plaquing PLV:mild plaquing LV angiography:not done LV-Ao no pullback gradient LVEDP: 25mmHg with systolic pressure of 180 Contrast used:75 mL Medications used: Versed 1mg Fentanyl 50mcg radial cocktail (5000 heparin, 200 NTG, 2.5 verapamil) ASA 81mg Ticagrelor 180mg Angiomax bolus + drip Equipment used: 6 jamaican [employer] left 4.0 guide PT 2 moderate support angioplasty wire 2.5 x 12 balloon Synergy 3.5 x 12 drug eluting stent 3.75 x 8 noncompliant balloon Assessment: 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
[2016-07-28] MEDS: ATORVASTATIN 40 MG TAB PO SCH (10:20)
[2016-07-28] MEDS: hydrALAzine 20 MG INJ IV PRN ×2 (10:21→16:14)
[2016-07-28] MEDS: FLUTICASONE 0.05% 16 GM NAS SPRAY NASAL SCH ×2 (10:21→20:54)
--- NOTE | 2016-07-28 10:45 | PN ---
DATE: 07/28/2016 TIME OF EVALUATION: 9:15 a.m. SUBJECTIVE DATA: Complains of some chest pain. Status post left heart catheterization with placement of a stent to the right coronary artery today. Blood pressure slightly on the higher side. OBJECTIVE DATA: VITAL SIGNS: Temperature 98.0, pulse rate 84, respiratory rate 18, blood pressure 143/84. Oxygen saturation 94% on room air. GENERAL: This is a well-built, well-nourished male lying in bed in no apparent distress. HEENT: Head normocephalic and atraumatic. Eyes: Anicteric sclerae. Conjunctivae clear. ENT: Nasal septum is midline. Oral mucosa is moist. NECK: Supple. No JVD noticed. RESPIRATORY: Bilaterally clear to auscultation. No adventitious breath sounds. No use of accessory muscles of respiration. CARDIAC: Regular rate and rhythm. S1 and S2 heard. ABDOMEN: Soft, nontender and nondistended. Bowel sounds positive in all 4 quadrants. GENITOURINARY: Deferred. EXTREMITIES: No cyanosis, no clubbing, no edema. Peripheral pulses are palpable. NEUROLOGIC: The patient is awake, alert and oriented. Cranial nerves are grossly intact. LABORATORY AND DIAGNOSTIC DATA: WBC 10.2, hemoglobin 12.7, hematocrit 38.1, platelet count 193. Sodium 135, potassium 3.9, chloride 104, carbon dioxide 26 , anion gap 9, BUN 19, creatinine 1.14, glucose 110, calcium 8.5. ASSESSMENT & PLAN: 1. Non-ST elevation myocardial infarction. Status post left heart catheterization with placement of a Synergy drug-eluting stent to the mid right coronary artery. Continue aspirin and Brilinta. 2. Ischemic cardiomyopathy with ejection fraction of 25% to 30%. Continue beta blockers. Initiation of BUSHRA inhibitors will be deferred to Cardiology. 3. Benign prostatic hypertrophy. Continue tamsulosin. 4. Essential hypertension. Continue antihypertensives. Adjust antihypertensives to obtain optimal blood pressure control. 5. Chronic left bundle branch block. Monitor. 6. Dyslipidemia. Continue statins. 7. Increased interstitial markings on chest x-ray. Interstitial lung disease versus pulmonary edema. We will repeat chest x-ray. 8. Fluid, electrolytes and nutrition. Continue low cholesterol diet. 9. Deep venous thrombosis prophylaxis with bilateral sequential compression devices. 10. Gastrointestinal prophylaxis. Proton pump inhibitors. 11. Plan: Continue intensive care unit monitoring. Await further recommendations from Cardiology. The case was discussed with Dr. Montiel. CRITICAL CARE TIME: 35 minutes. CL MONTIEL MD, AM/KEYA Conf#: [id number] DID#: [id number] MTDD
--- NOTE | 2016-07-28 10:53 | RADRPT ---
PROCEDURE: XR Chest AP portable CLINICAL INDICATION: Infiltrate TECHNIQUE: An AP portable radiograph of the chest was submitted. COMPARISON: 07/26/2016 FINDINGS: Support Hardware: None Cardiovascular: The heart remains mildly enlarged, the aorta appears atherosclerotic while the perip heral pulmonary vasculature is upper normal. Lung He: There is been slight interval improvement with regards to the diffuse interstitial infi ltrates seen to the lung he. No alveolar infiltrate is evident. Pleural Spaces: No pneumothorax or pleural effusion is identified. Osseous Structures: Moderate degenerative spine changes are again noted. Soft Tissues: The soft tissues appear unremarkable. IMPRESSION: 1. Persistent mild cardiomegaly with atherosclerotic changes to the aorta. 2. Improving diffuse interstitial infiltrates compatible with either interstitial edema or pneumoni tis. 3. Moderate degenerative spine changes are again noted. Physician Darlin Date Time Electronically viewed and signed by Physician Darlin on 07/28/2016 10:52 /
--- NOTE | 2016-07-28 15:41 | CONS ---
Date/Time of Note Date/Time of Note DATE: 07/28/16 TIME: 15:35 Assessment/Plan Assessment/Plan Chief Complaint/Hosp Course Assessment: Status post NSTEMI Coronary artery disease - status post drug-eluting stent to RCA 07/28/2016, left system with minimal disease Nonischemic cardiomyopathy, LVEF 25-30% - out of proportion to extent of coronary artery disease Accelerated hypertension Chronic left bundle branch block Dyslipidemia Benign prostate hyperplasia Increased interstitial markings on chest x-ray - interstitial lung disease vs pulmonary edema, status post diuresis Recommendations: -continue aspirin 81mg daily and ticagrelor 90mg BID -continue atorvastatin 80mg daily -continue carvedilol 25mg BID -add losartan 50mg BID -consider coronary CTA as outpatient to evaluate RCA course and possible stress testing if between aorta and PA Problems: Consultation Date/Type/Reason Admit Date/Time Jul 26, 2016 at 05:58 Type of Consultation: Cardiology 24 HR Interval Summary Free Text/Dictation Coronary angiogram showed 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 Status post drug-eluting stent implantation to the right coronary artery. Doing well post-procedure. No chest pain or shortness of breath. Right radial artery access site intact. Detailed Summary Additional Comments 14 point review of systems without changes. Exam/Review of Systems Vital Signs Vitals Vital Signs Date Time Temp Pulse Resp B/P Pulse Ox O2 Delivery O2 Flow Rate FiO2 07/28/16 13:00 106 32 159/88 96 Room Air 07/28/16 12:00 98.2 07/27/16 09:54 21 07/26/16 13:30 2.0 Intake and Output 07/27/16 07/27/16 07/28/16 15:00 23:00 07:00 Intake Total 1067 ml 833.5 ml 155 ml Output Total 500 ml 200 ml 750 ml Balance 567 ml 633.5 ml -595 ml Exam Constitutional: alert, well developed Psych: nl mood/affect, no complaints Head: atraumatic, normocephalic Eyes: nl conjunctiva, nl lids ENMT: nl external ears & nose, nl nasal mucosa & septum Neck: non-tender, supple, No jvd Respiratory: clear to auscultation, normal air movement Cardiovascular: regular rate and rhythm Gastrointestinal: non-tender, soft Musculoskeletal: nl extremities to inspection Extremities: No clubbing, No cyanosis, No edema Neurological: nl mental status, nl speech Results Result Diagram: 07/28/16 0600 07/28/16 0600 Results 24 hrs Laboratory Tests Test 07/28/16 06:00 White Blood Count 9.2 Red Blood Count 4.20 L Hemoglobin 12.7 L Hematocrit 38.1 L Mean Corpuscular Volume 90.7 Mean Corpuscular Hemoglobin 30.2 Mean Corpuscular Hemoglobin Concent 33.3 Red Cell Distribution Width 13.7 Platelet Count 193 Mean Platelet Volume 11.6 H Neutrophils % 64.4 Lymphocytes % 18.8 Monocytes % 13.2 H Eosinophils % 2.6 Basophils % 0.8 Nucleated Red Blood Cells % 0.0 Neutrophils # 5.9 Lymphocytes # 1.7 Monocytes # 1.2 H Eosinophils # 0.2 Basophils # 0.1 Nucleated Red Blood Cells # 0.0 Sodium Level 135 Potassium Level 3.9 Chloride Level 104 Carbon Dioxide Level 26 Anion Gap 9 Blood Urea Nitrogen 19 Creatinine 1.15 Glucose Level 110 Calcium Level 8.5 Vitamin D 1,25-Dihydroxy 33.9 Medications Medications Current Medications Ondansetron HCl (Zofran Inj) 4 mg Q6H PRN IV NAUSEA AND/OR VOMITING; Start 07/26 at 06:00 Nitroglycerin (Nitroglycerin (Sl Tab) 0.4 Mg) 1 tab Q5M PRN SL CHEST PAIN; Start 07/26/16 at 06:00 Acetaminophen (Tylenol Liquid) 650 mg Q6H PRN PO PAIN LEVEL 1-3 OR FEVER; Start 07/26/16 at 06:00 Morphine Sulfate (morphine) 2 mg Q4H PRN IV PAIN LEVEL 7-10; Start 07/26/16 at 06:00 Lorazepam (Ativan) 1 mg Q2H PRN IV ANXIETY; Start 07/26/16 at 06:00 Pantoprazole (Protonix Iv) 40 mg DAILY@06 IV Last administered on 07/28/16 05: 33; Admin Dose 40 MG; Start 07/26/16 at 06:00 Fluticasone Propionate (Flonase 0.05% Nasal) 0.05 spray BID NASAL Last administered on 07/28/16 10:21; Admin Dose 0.05 SPRAY; Start 07/26/16 at 09:00 Tamsulosin HCl (Flomax) 0.4 mg DAILY@21 PO Last administered on 07/27/16 20:22 ; Admin Dose 0.4 MG; Start 07/26/16 at 21:00 Atorvastatin Calcium (Lipitor) 80 mg DAILY PO Last administered on 07/28/16 10: 20; Admin Dose 80 MG; Start 07/27/16 at 09:00 Carvedilol (Coreg) 25 mg BID PO Last administered on 07/28/16 10:21; Admin Dose 25 MG; Start 07/27/16 at 21:00 Miscellaneous Information (* Miscellaneous Pharmacy Order) HOLD all METFORMIN ... ONCE XX Last administered on 07/28/16 09:35; Admin Dose 1 EA; Start at 09:30; Stop 07/30/16 at 09:29 Acetaminophen (Tylenol Tab) 650 mg Q4H PRN PO NON-CARDIAC PAIN LEVEL (1-3); Start 07/28/16 at 09:30 Morphine Sulfate (morphine) 2 mg Q2H PRN IV FOR NON CARDIAC PAIN (4-10); Start 07/28/16 at 09:30 Ondansetron HCl (Zofran Inj) 4 mg Q4H PRN IV NAUSEA AND/OR VOMITING; Start 07/28 at 09:30 Aspirin (Aspirin) 81 mg DAILY PO ; Start 07/29/16 at 09:00 Ticagrelor (Brilinta) 90 mg BID PO ; Start 07/28/16 at 21:00 Hydralazine HCl (Apresoline) 10 mg Q4H PRN IV SBP >160 Last administered on 07/28 10:21; Admin Dose 10 MG; Start 07/28/16 at 09:30 ZULEIMA BOWMAN MD Jul 28, 2016 15:41
[2016-07-28] MEDS: LOSARTAN 50 MG TAB PO SCH ×2 (16:14→20:53)
[2016-07-28] MEDS: TAMSULOSIN (SR) 0.4 MG CAP PO SCH (20:52)
[2016-07-28] MEDS: TICAGRELOR 90 MG TABLET PO SCH (21:14)
[2016-07-29] VITALS (12 sets, daily range): BP systolic 122–146; BP diastolic 57–73; PULSE 66–81; RESP 15–22
[2016-07-29] MEDS: PANTOPRAZOLE 40 MG INJ IV SCH (05:44)
[2016-07-29 06:10] LABS: ADD SCAN DIFF NO
[2016-07-29 06:17] LABS: BASOPHILS % 0.4 % (0.0-2.0); EOSINOPHILS # 0.1 10^3/ul (0.0-0.5); EOSINOPHILS % 1.4 % (0.0-7.0); HEMATOCRIT 39.5 % (42.0-52.0); LYMPHOCYTES # 1.5 10^3/ul (0.8-2.9); LYMPHOCYTES % 14.6 % (15.0-51.0); MEAN CORPUSCULAR HEMOGLOBIN 29.6 pg (29.0-33.0); MEAN CORPUSCULAR HGB CONC 32.9 g/dl (32.0-37.0); MEAN PLATELET VOLUME 11.5 fl (7.4-10.4); MONOCYTE # 1.1 10^3/ul (0.3-0.9); MONOCYTES % 10.9 % (0.0-11.0); NEUTROPHIL # 7.4 10^3/ul (1.6-7.5); NEUTROPHILS % 72.4 % (39.0-77.0); PLATELET COUNT 197 10^3/UL (140-415); RED BLOOD COUNT 4.39 10^6/ul (4.70-6.10); RED CELL DISTRIBUTION WIDTH 13.8 % (11.5-14.5); WHITE BLOOD COUNT 10.3 10^3/ul (4.8-10.8)
[2016-07-29 06:48] LABS: POTASSIUM 3.6 mmol/L (3.5-5.1)
[2016-07-29 06:50] LABS: CREATININE 1.28 mg/dl (0.61-1.24)
[2016-07-29 06:51] LABS: CALCIUM 8.7 mg/dl (8.4-10.2)
[2016-07-29] MEDS: FLUTICASONE 0.05% 16 GM NAS SPRAY NASAL SCH (09:00)
[2016-07-29] MEDS ORDERED: ASPIRIN 81 MG TAB PO SCH (09:00)
[2016-07-29] MEDS: ATORVASTATIN 40 MG TAB PO SCH (09:41)
[2016-07-29] MEDS: LOSARTAN 50 MG TAB PO SCH (09:44)
[2016-07-29] MEDS: TICAGRELOR 90 MG TABLET PO SCH (09:46)
--- NOTE | 2016-07-29 14:21 | CONS ---
Date/Time of Note Date/Time of Note DATE: 07/29/16 TIME: 14:20 Assessment/Plan Assessment/Plan Chief Complaint/Hosp Course Assessment: Status post NSTEMI Coronary artery disease - status post drug-eluting stent to RCA 07/28/2016, left system with minimal disease Nonischemic cardiomyopathy, LVEF 25-30% - out of proportion to extent of coronary artery disease Accelerated hypertension Chronic left bundle branch block Dyslipidemia Benign prostate hyperplasia Increased interstitial markings on chest x-ray - interstitial lung disease vs pulmonary edema, status post diuresis Recommendations: -continue aspirin 81mg daily and ticagrelor 90mg BID -continue atorvastatin 80mg daily -continue carvedilol 25mg BID and losartan 50mg BID -consider coronary CTA as outpatient to evaluate RCA course and possible stress testing if between aorta and PA -stable for discharge from cardiac standpoint, follow up with me in clinic next week Problems: Consultation Date/Type/Reason Admit Date/Time Jul 26, 2016 at 05:58 Type of Consultation: Cardiology 24 HR Interval Summary Free Text/Dictation Transferred out of ICU. Blood pressures improved. No chest pain or shortness of breath. Detailed Summary Additional Comments 14 point review of systems without changes. Exam/Review of Systems Vital Signs Vitals Vital Signs Date Time Temp Pulse Resp B/P Pulse Ox O2 Delivery O2 Flow Rate FiO2 07/29/16 13:11 78 07/29/16 05:00 15 126/57 96 07/28/16 23:00 Room Air 07/28/16 20:00 98.5 07/27/16 09:54 21 07/26/16 13:30 2.0 Intake and Output 07/28/16 07/28/16 07/29/16 15:00 23:00 07:00 Intake Total 518 ml 540 ml 240 ml Output Total 700 ml 900 ml 400 ml Balance -182 ml -360 ml -160 ml Exam Constitutional: alert, well developed Psych: nl mood/affect, no complaints Head: atraumatic, normocephalic Eyes: nl conjunctiva, nl lids ENMT: nl external ears & nose, nl nasal mucosa & septum Neck: non-tender, supple, No jvd Respiratory: clear to auscultation, normal air movement Cardiovascular: regular rate and rhythm Gastrointestinal: non-tender, soft Musculoskeletal: nl extremities to inspection Extremities: No clubbing, No cyanosis, No edema Neurological: nl mental status, nl speech Results Result Diagram: 07/29/1633 07/29/16 0533 Results 24 hrs Laboratory Tests Test 07/29/16 05:33 White Blood Count 10.3 Red Blood Count 4.39 L Hemoglobin 13.0 L Hematocrit 39.5 L Mean Corpuscular Volume 90.0 Mean Corpuscular Hemoglobin 29.6 Mean Corpuscular Hemoglobin Concent 32.9 Red Cell Distribution Width 13.8 Platelet Count 197 Mean Platelet Volume 11.5 H Neutrophils % 72.4 Lymphocytes % 14.6 L Monocytes % 10.9 Eosinophils % 1.4 Basophils % 0.4 Nucleated Red Blood Cells % 0.0 Neutrophils # 7.4 Lymphocytes # 1.5 Monocytes # 1.1 H Eosinophils # 0.1 Basophils # 0.0 Nucleated Red Blood Cells # 0.0 Sodium Level 135 Potassium Level 3.6 Chloride Level 102 Carbon Dioxide Level 26 Anion Gap 11 Blood Urea Nitrogen 28 H Creatinine 1.28 H Glucose Level 100 Calcium Level 8.7 Magnesium Level 2.0 Medications Medications Current Medications Ondansetron HCl (Zofran Inj) 4 mg Q6H PRN IV NAUSEA AND/OR VOMITING; Start 07/26 at 06:00 Nitroglycerin (Nitroglycerin (Sl Tab) 0.4 Mg) 1 tab Q5M PRN SL CHEST PAIN; Start 07/26/16 at 06:00 Acetaminophen (Tylenol Liquid) 650 mg Q6H PRN PO PAIN LEVEL 1-3 OR FEVER; Start 07/26/16 at 06:00 Morphine Sulfate (morphine) 2 mg Q4H PRN IV PAIN LEVEL 7-10; Start 07/26/16 at 06:00 Lorazepam (Ativan) 1 mg Q2H PRN IV ANXIETY; Start 07/26/16 at 06:00 Pantoprazole (Protonix Iv) 40 mg DAILY@06 IV Last administered on 07/29/16 05: 44; Admin Dose 40 MG; Start 07/26/16 at 06:00 Fluticasone Propionate (Flonase 0.05% Nasal) 0.05 spray BID NASAL Last administered on 07/28/16 20:54; Admin Dose 0.05 SPRAY; Start 07/26/16 at 09:00 Tamsulosin HCl (Flomax) 0.4 mg DAILY@21 PO Last administered on 07/28/16 20:52 ; Admin Dose 0.4 MG; Start 07/26/16 at 21:00 Atorvastatin Calcium (Lipitor) 80 mg DAILY PO Last administered on 07/29/16 09: 41; Admin Dose 80 MG; Start 07/27/16 at 09:00 Carvedilol (Coreg) 25 mg BID PO Last administered on 07/29/16 09:44; Admin Dose 25 MG; Start 07/27/16 at 21:00 Miscellaneous Information (* Miscellaneous Pharmacy Order) HOLD all METFORMIN ... ONCE XX Last administered on 07/28/16 09:35; Admin Dose 1 EA; Start at 09:30; Stop 07/30/16 at 09:29 Acetaminophen (Tylenol Tab) 650 mg Q4H PRN PO NON-CARDIAC PAIN LEVEL (1-3); Start 07/28/16 at 09:30 Morphine Sulfate (morphine) 2 mg Q2H PRN IV FOR NON CARDIAC PAIN (4-10); Start 07/28/16 at 09:30 Ondansetron HCl (Zofran Inj) 4 mg Q4H PRN IV NAUSEA AND/OR VOMITING; Start 07/28 at 09:30 Aspirin (Aspirin) 81 mg DAILY PO Last administered on 07/29/16 09:40; Admin Dose 81 MG; Start 07/29/16 at 09:00 Ticagrelor (Brilinta) 90 mg BID PO Last administered on 07/29/16 09:46; Admin Dose 90 MG; Start 07/28/16 at 21:00 Hydralazine HCl (Apresoline) 10 mg Q4H PRN IV SBP >160 Last administered on 07/28 16:14; Admin Dose 10 MG; Start 07/28/16 at 09:30 Losartan Potassium (Cozaar) 50 mg BID PO Last administered on 07/29/16 09:44; Admin Dose 50 MG; Start 07/28/16 at 16:00 ZULEIMA BOWMAN MD Jul 29, 2016 14:21
--- NOTE | 2016-07-29 14:31 | PDOCDIS ---
Discharge Instructions DIAGNOSIS Discharge Diagnosis: CAD. CONDITION Patient Condition: Stable HOME CARE INSTRUCTIONS: Special Diet: CARDIAC DIET FOLLOW UP/APPOINTMENTS Appointments Gio Hernandez MD Specialty: Cardiology Office Address: [address] [place] [address] [place], [place] [id number] Office OTHER ORDERS: Other Orders: 1. Please take a low-cholesterol diet. 2. Take medications as per prescription. Do not stop taking aspirin and Brilinta unless you talk to your raisin separator operator. Take aspirin for life long. Take Brilinta for at least one year. 3. Resume activities as tolerated. 4. Follow-up with your raisin separator operator (Dr. Hernandez) in 1 week. 5. Please call 911 or go to the nearest emergency room if you have any chest pain. CL THOMAS NP Jul 29, 2016 14:31
[2016-07-29] MEDS ORDERED: ATOR40TA68 PO (14:32)
[2016-07-29] MEDS ORDERED: LOSA50TA6 PO (14:32)
[2016-07-29] MEDS ORDERED: CARV25TA79 PO (14:32)
[2016-07-29] MEDS ORDERED: ASPI81TA3 PO (14:32)
[2016-07-29] MEDS ORDERED: TICA90TA PO (14:32)
--- NOTE | 2016-07-29 17:25 | DS ---
DATE OF ADMISSION: 07/26/2016 DATE OF DISCHARGE: 07/29/2016 FINAL DIAGNOSES 1. Non-ST elevation myocardial infarction. Status post left heart catheterization with placement of a drug-eluting stent to the mid right coronary artery. 2. Coronary artery disease. 3. Ischemic cardiomyopathy with ejection fraction of 25% to 30%. 4. Benign prostatic hypertrophy. 5. Essential hypertension. 6. Chronic left bundle branch block. 7. Dyslipidemia. CONSULTANTS: 1. Dr. Gio Hernandez, cardiology. 2. Dr. Charlie Garner, cardiology. HOSPITAL COURSE: This is a 70-year-old male with past medical history of essential hypertension, dyslipidemia, BPH, and left bundle branch block who presented to the emergency department with chest pain. The patient verbalized his pain as left-sided with radiation to his left arm that has been going on for 2 to 3 days. The patient denied any shortness of breath, nausea, vomiting, diaphoresis, fevers, or chills. In the emergency room, the patient was noticed to have a blood pressure 180/116. The patient was also noticed to have elevated troponin of 1.88. Provided the patient's history of present illness, the comorbidities and the diagnostic findings, a clinical decision was made to admit the patient to inpatient setting to have him further evaluated. The patient was admitted to inpatient setting. The patient was started on therapeutic Lovenox for underlying ACS. A cardiology consult was obtained. A 2D echocardiogram was ordered. The patient's troponins started trending up. The patient was started on aspirin. The patient was also maintained on optimal blood pressure control. The patient underwent a 2D echocardiogram that showed ejection fraction of 25% to 30%, suggesting ischemic cardiomyopathy. The echo also revealed moderate concentric left ventricular hypertrophy. Consequently, the patient was started on beta blockers and ARBs. [facility]2016 and the patient underwent a left heart catheterization with balloon angioplasty and stenting of the anomalous mid RCA with a Synergy drug-eluting stent. Postoperatively, the patient was transferred to intensive care unit for close monitoring. The patient was started on dual antiplatelet therapy. The patient' s left heart catheterization also revealed anomalous RCA takeoff with question of intra-arterial course. The patient was also noticed to have evidence of cardiomyopathy out of proportion to the CAD diagnosed. Hence, the neuropsychology service director recommended outpatient CT to evaluate the RCA course and possible stress test as outpatient. The patient has underlying benign prostatic hypertrophy. The patient was maintained on medications for the same. He has underlying history of essential hypertension. The patient is on antihypertensives. The patient has chronic left bundle branch block. The patient had no evidence of any progression of the same. The patient was noticed to have dyslipidemia. The patient's initial chest x-ray that was done in the emergency room showed increased interstitial markings. This could be indicative of interstitial lung disease versus pulmonary edema. The patient's repeat chest x-ray on 07/28/2016 showed improvement of diffuse interstitial infiltrates. This confirms that the patient 's interstitial infiltrates evident on chest x-ray are most probably pulmonary edema secondary to systolic heart failure. The patient had a stable hospital course. The patient was cleared by cardiology to be discharged home. The patient denied any complaints at the time of discharge. DISCHARGE DISPOSITION/PLAN: The patient will be discharged home today. The patient was instructed to eat a low cholesterol diet. He was instructed to take medications as per prescription and to not stop taking aspirin and Brilinta unless he talks to his neuropsychology service director. The patient was instructed to take aspirin lifelong and to take Brilinta for at least 1 year. He was instructed to resume activities as tolerated. He was instructed to follow up with his neuropsychology service director (Dr. Hernandez) in 1 week. He also was instructed to please call 911 or go to the nearest emergency room if he has any chest pain. The patient verbalized understanding of his discharge instructions. CONDITION AT DISCHARGE: Stable. DISCHARGE MEDICATIONS 1. Aspirin 81 mg p.o. daily. 2. Atorvastatin 80 mg p.o. daily. 3. Coreg 25 mg p.o. b.i.d. 4. Losartan 50 mg p.o. twice a day. 5. Ticagrelor 90 mg p.o. b.i.d. 6. Avodart 1 tablet p.o. b.i.d. 7. Tamsulosin 1 tablet p.o. daily. 8. Fluticasone propionate 1 puff nasal spray b.i.d. PERTINENT LABORATORY AND DIAGNOSTIC DATA AND PROCEDURES: 1. 2D echocardiogram. The left ventricle is normal in size with severely reduced systolic function. Estimated left ventricular ejection fraction of 25% to 30%. Moderate concentric left ventricular hypertrophy. Mild left atrial enlargement. Estimated peak PA systolic pressure of 23 mmHg. 2. Left heart catheterization. 90% stenosis of the mid RCA. Status post balloon angioplasty and placement of a drug-eluting stent. Abnormal left RCA takeoff with question of intraatrial course. 3. Latest CBC: WBC 10.3, hemoglobin 13.9, hematocrit 39.5, platelet count 197. 4. Latest BMP: Sodium 135, potassium 3.6, chloride 102, carbon dioxide 26, anion gap 11, BUN 20, creatinine 1.2, glucose 100, calcium 8.0, magnesium 2.0. 5. Hemoglobin A1c 5.3%. 6. Fasting lipid panel: Triglycerides 57, total cholesterol 157, LDL 86, AST of 60. 7. Latest chest x-ray on 07/28/2016. Persistent mild cardiomegaly with atherosclerotic changes to the aorta. Improving diffuse interstitial infiltrates compatible with either interstitial edema or pneumonitis. Mild degenerative spine changes. At this time, we would like to thank all the consultants for seeing the patient , doing the necessary procedures, and providing clinical recommendations. The case and management of this patient was fully discussed with Dr. Molina. Approximately 35 minutes was spent on coordinating the discharge on this patient. CL MOLINA MD, AM/KEYA Conf#: [id number] DID#: [id number] MTDD
== END 2016-07-29 20:00 | disposition home or self-care (01) | DRG 247 ==
LOC: E/R 03:19 → ICU 05:58 → TEL 07-29 07:45
PROVIDERS: ADMIT Internal Medicine; ATTEND Internal Medicine
PROC: 027034Z Dilation of Coronary Artery, One Artery with Drug-eluting Intraluminal Device, Percutaneous Approach (ICD-10-PCS; principal; 2016-07-28)
PROC: 4A023N7 Measurement of Cardiac Sampling and Pressure, Left Heart, Percutaneous Approach (ICD-10-PCS; 2016-07-28)
PROC: B211YZZ Fluoroscopy of Multiple Coronary Arteries using Other Contrast (ICD-10-PCS; 2016-07-28)
DX: I21.4 Non-ST elevation (NSTEMI) myocardial infarction (principal); J84.9 Interstitial pulmonary disease, unspecified; I16.1 Hypertensive emergency; I44.7 Left bundle-branch block, unspecified; I10 Essential (primary) hypertension; E78.5 Hyperlipidemia, unspecified; N40.0 Benign prostatic hyperplasia without lower urinary tract symptoms; E87.6 Hypokalemia; I25.5 Ischemic cardiomyopathy; I25.10 Atherosclerotic heart disease of native coronary artery without angina pectoris
CPT/HCPCS: 36415; 71010; 80048; 80053; 80061; 82550; 82553; 82652; 83036; 83735; 84100; 84436; 84443; 84479; 84484; 85025; 85610; 85730; 87081; 93005; 93306; 93458; 94640; 94664; 96372; 96374; 96375; C1725; C1769; C1874; C1887; C9113; C9600; J0360; J0583; J1644; J1940; J2250; J3010; J7040; J7042; Q9967

== ENCOUNTER 2016-09-22 12:35 | Emergency (ER) | payer MEDICARE, OTHER ==
[~2016-09-22] VITALS: Ht 175.3 cm; Wt 78.0 kg
[~2016-09-22 12:35] MED LIST changes: +ASPI81TA3 PO; +ATOR40TA68 PO; +CARV25TA79 PO; +LOSA50TA6 PO; +TICA90TA PO
[2016-09-22 12:39] VITALS: Ht 175.3 cm; Wt 78.0 kg
--- NOTE | 2016-09-22 13:40 | ERD ---
ER Documentation Chief Complaint Date/Time DATE: 09/22/16 TIME: 13:36 Chief Complaint taking brilinta, has been getting bruises x 2 weeks HPI This 71-year-old male presents for bruising along his anterior abdominal wall for 2 weeks. He is currently taking Brilinta, however he does not know why. He denies having irregular heartbeat or prior history of a stroke. Denies having a stent in his heart. He has his number for his pullman clerk on him who is not open today. He recently saw his primary care doctor who told him that the bruising was okay. He wants a second opinion currently. He has no symptoms of bleeding currently. He has no chest pain, no shortness of breath, no lightheadedness or dizziness, no abdominal pain, no headache. He did have a bloody nose 3 days ago that stopped spontaneously. He has not had any bleeding since. He denies dark tarry stools and he denies any vomiting blood or blood in his stools. ROS All systems reviewed and are negative except as per history of present illness. Medications Home Meds Active Scripts Aspirin (Aspirin) 81 Mg Chew, 81 MG PO DAILY for 30 Days, TAB Prov:CL THOMAS NP 07/29/16 Losartan Potassium* (Losartan Potassium*) 50 Mg Tablet, 50 MG PO BID for 30 Days , TAB Prov:CL THOMAS NP 07/29/16 Carvedilol* (Carvedilol*) 25 Mg Tablet, 25 MG PO BID for 30 Days, TAB Prov:CL THOMAS NP 07/29/16 Atorvastatin* (Atorvastatin*) 40 Mg Tablet, 80 MG PO DAILY for 30 Days, TAB Prov:CL THOMAS NP 07/29/16 Ticagrelor* (Brilinta*) 90 Mg Tablet, 90 MG PO BID for 30 Days, TAB Prov:CL THOMAS NP 07/29/16 Reported Medications Fluticasone Propionate* (Flonase* Nasal) 16 Gm Hope.susp, 1 PUFF NASAL BID 02/15/13 Dutasteride* (Avodart*) 0.5 Mg Capsule, 1 TAB PO DAILY 02/15/13 Tamsulosin Hcl* (Tamsulosin Hcl*) 0.4 Mg Cap.er.24h, 1 TAB PO DAILY 02/15/13 Allergies Allergies: Coded Allergies: No Known Allergy (Unverified , 10/22/13) PMhx/Soc History of Surgery: No Anesthesia Reaction: No Hx Neurological Disorder: No Hx Respiratory Disorders: No Hx Cardiac Disorders: Yes (HTN) Hx Psychiatric Problems: No Hx Miscellaneous Medical Probl: No Hx Alcohol Use: No Hx Substance Use: No Hx Tobacco Use: No Smoking Status: Never smoker Physical Exam Vitals Vital Signs Date Time Temp Pulse Resp B/P Pulse Ox O2 Delivery O2 Flow Rate FiO2 09/22/16 12:39 98.0 66 18 189/81 99 Physical Exam Const: [] No distress Head: Atraumatic Eyes: Normal Conjunctiva ENT: Normal External Ears, Nose and Mouth. Neck: Full range of motion..~ No meningismus. Resp: Clear to auscultation bilaterally Cardio: Regular rate and rhythm, no murmurs Abd: Soft, non tender, non distended. Normal bowel sounds. Old bruises approximately 4 in number along abdominal wall. There are bilateral 2 of them are in the upper mid abdomen into the emergency midabdomen. There is old in appearance and are now green and yellow with some slight areas of purpura. No puncture wounds, no bleeding. Skin: No petechiae or rashes Back: No midline or flank tenderness Ext: No cyanosis, or edema, distal pulses intact all 4 extremities. No bruising of extremities. Neur: Awake and alert and oriented 3, cranial nerves II through XII intact, no cerebellar deficits. Normal gait Psych: Normal Mood and Affect Procedures/MDM Patient on Brilinta with skin bruising with no current bleeding. Patient is stable and vital signs and is otherwise asymptomatic. I agree with his primary care doctor that the bruising is currently okay. I have him call his pullman clerk tomorrow in the open as today is a holiday. Believe it is important he knows why he is taking the platelet inhibiting medication for. Follow-up with primary care and pullman clerk to determine if the need to decrease his dose at all or if they still feel it is safe. Departure Diagnosis: Primary Impression: Bruising Condition: Stable Patient Instructions: Contusions (Bruises) Additional Instructions: Llame al doctor JUAN PABLO y magi fatoumata CASEY PARA DENTRO DE 1-2 ALEJANDRO. Llame ruelas cardiologo manana. Dgale a la secretaria que nosotros le instruimos hacer esta casey.Avise o llame si ruelas condicin se empeora antes de la casey. Regresa aqui si peor o no mejor. JAVIER KIM DO September 22, 2016 13:40
== END 2016-09-22 13:58 | disposition home or self-care (01) ==
LOC: E/R 12:35
DX: S30.1XXA Contusion of abdominal wall, initial encounter (principal); I10 Essential (primary) hypertension; X58.XXXA Exposure to other specified factors, initial encounter; Y92.9 Unspecified place or not applicable; Z79.82 Long term (current) use of aspirin
CPT/HCPCS: 99282